=== PATIENT | female | born 1970 | race Caucasian/White ===

== ENCOUNTER 2017-04-30 08:03 | Emergency (ER) | payer OTHER ==
[2017-04-30 08:10] VITALS: BP 125/69
--- NOTE | 2017-04-30 11:55 | UC ---
[facility] Angela, scribed for Lianne Sheridan DO on 04/30/17 at 0824 . General HPI - HPI Summary HPI Summary: This pt is a 46 y/o female presenting to [facility] c/o fatigue, nausea, sinus congestion, sinus pain x2 days (since Thursday04/28/17). Pt additionally c/o diarrhea, pressure in the sinus and head, rhinorrhea, ear ache, chills, myalgia , non-productive cough and subjective fever. Her cough does not keep her awake at night. She denies cough spasms. She felt feverish last night but did not take her temperature. Pt denies sore throat, chest pain, SOB, dysuria, change in urine color, odor, or frequency. She states she has a sick contact at home, her , who has had these symptoms for the last 3 weeks. Pt notes her has also felt feverish but has not taken his temperature. No PMHx. - History of Current Complaint Chief Complaint: UCRespiratory Stated Complaint: RESP ISSUE CHILLS NAUSEA Time Seen by Provider: 04/30/17 08:12 Hx Obtained From: Patient Hx Last Menstrual Period: iud Onset/Duration: Lasting Days, Still Present Timing: Constant Current Severity: Moderate Associated Signs & Symptoms: Positive: Cough - non-productive, Diarrhea, Fever - subjective, Headache, Nausea, Other - POS: fatigue, sinus congestion/pain, pressure in the head, rhinorrhea, ear ache, myalgia. NEG: sore throat, change in urine color, odor, or frequency.. 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 Lt [facility]- ARTHROSCOPIC - 1993 -MMT & 1997 - ACL REPAIR. 2011 - BREAST AUGMENTATION - W/ SALINE IMPLANTS - Family History Known Family History: Negative: Cardiac Disease, Hypertension, Diabetes - Social History Occupation: Employed Full-time - works in [employer] office Lives: With Family Alcohol Use: Occasionally Alcohol Amount: On weekends Substance Use Type: None Substance Use Comment - Amount & Last Used: tramadol Smoking Status (MU): Never Smoked Tobacco Review of Systems Constitutional: Fever - subjective, Chills, Fatigue Skin: Negative Eyes: Negative ENT: Ear Ache, Nasal Discharge, Sinus Congestion, Sinus Pain/Tenderness, Other - NEG: sore throat Respiratory: Cough - non-productive, Other - NEG: SOB Cardiovascular: Negative Gastrointestinal: Diarrhea, Nausea Genitourinary: Negative Motor: Negative Neurovascular: Negative Musculoskeletal: Myalgia, Other: - body aches Neurological: Headache - sinus pressure in the head Psychological: Negative Is Patient Immunocompromised?: No All Other Systems Reviewed And Are Negative: Yes Physical Exam Triage Information Reviewed: Yes Appearance: Well-Appearing, No Pain Distress, Well-Nourished Vital Signs: Initial Vital Signs Temp 97.9 F 04/30/17 08:08 Pulse 77 04/30/17 08:08 Resp 16 04/30/17 08:08 BP 125/69 04/30/17 08:08 Pulse Ox 100 04/30/17 08:08 Vital Signs Reviewed: Yes Eyes: Positive: Conjunctiva Clear. Negative: Discharge ENT: Positive: Hearing grossly normal, Pharynx normal, TMs normal. Negative: Tonsillar swelling, Tonsillar exudate, Trismus, Muffled voice, Hoarse voice, Sinus tenderness Neck exam: Normal Neck: Positive: Supple Respiratory: Positive: Lungs clear, Normal breath sounds, No respiratory distress, No accessory muscle use Cardiovascular: Positive: RRR, No Murmur Musculoskeletal Exam: Normal Neurological: Positive: Alert, Muscle Tone Normal Psychological: Positive: Age Appropriate Behavior, Other: - Pt was a little anxious Skin Exam: Normal, Other - warm, dry, normal color Course/Dx - Course Course Of Treatment: Medications reviewed this visit. High blood pressure noted likely due to pts condition. Rapid influenza A and B are both negative. Pt was discharged home with diagnosis of sinusitis. - Differential Dx - Multi-Symptom Provider Diagnoses: Viral Sinusitis Discharge - Discharge Plan Condition: Stable Disposition: HOME Patient Education Materials: Sinusitis (ED) Referrals: Reinaldo Cordon MD [Primary Care Provider] - 1 Week Additional Instructions: TRY USING THE NETTI POT IN THE MORNINGS DISCUSSED. YOU MUST ALWAYS USE CLEAN WATER. REMEMBER, POSTURE IS AN IMPORTANT FACTOR IN SINUS DRAINAGE. MOVE YOUR NECK, BREATHE. The documentation as recorded by the [facility] Angela accurately reflects the service I personally performed and the decisions made by me, Lianne Shreidan DO.
== END 2017-04-30 09:15 | disposition home or self-care (01) ==
LOC: UCEAST 08:03
DX: J32.9 Chronic sinusitis, unspecified (principal); R53.83 Other fatigue; R11.0 Nausea; R19.7 Diarrhea, unspecified
CPT/HCPCS: 87502; 99212; G0463